=== PATIENT | female | born 1995 | race African-American/Black ===

== ENCOUNTER 2022-02-08 12:24 | Emergency (ER) | payer SELFPAY ==
[2022-02-09 17:15] LABS: Chlamydia by PCR Not Detected (NotDetected); GC by PCR Not Detected (NotDetected)
== END 2022-02-08 14:40 | disposition home or self-care (01) ==
LOC: CSHERS 12:24
DX: B02.9 Zoster without complications (principal)
CPT/HCPCS: 87480; 87491; 87510; 87591; 87660; 99283

== ENCOUNTER 2022-04-22 12:45 | Emergency (ER) | payer SELFPAY | END 2022-04-22 14:50 | disposition home or self-care (01) | LOC: CSHERS 12:45 | DX: I80.8 Phlebitis and thrombophlebitis of other sites (principal) | CPT/HCPCS: 99283 ==

== ENCOUNTER 2022-05-21 11:48 | Emergency (ER) | payer SELFPAY ==
[2022-05-21 12:49] LABS: #Eosinphils 0.1 10x3/uL (0.0-0.5); #Monocytes 0.8 10x3/uL (0.0-1.1); #Neutrophils 7.7 10x3/uL (1.5-8.4); %Basophils 0.4 % (0.0-2.0); %Lymphocytes 14.8 % (18.0-47.0); %Monocytes 8.3 % (0.0-10.0); %Neutrophils 75.2 % (40.0-75.0); Bilirubin Neg (Negative); Blood, Urine 10 (Negative); Clarity Slightly Cloudy (Clear); Glucose, Urine (Dipstick) Normal (Negative); Hemoglobin 12.9 g/dL (12.0-15.5); Ketone, Urine 15 mg/dL (Negative); Leukocyte 100 (Negative); Mean Corpuscular HGB CONC 33.3 g/dL (32.0-36.0); Mean Corpuscular Hemoglobin 28.4 pg (27.0-33.0); Mean Corpuscular Volume 85.1 fl (81.6-98.3); Mean Platelet Volume 9.6 fl (7.4-10.4); Nitrite Negative (Negative); Platelet Count 327 10x3/uL (150-450); Protein, Urine (Dipstick) 30 mg/dl (Neg-Trace); RBC Distribution Width 14.7 % (11.5-14.5); Red Blood Cell (RBC) Count 4.55 10x6/uL (3.90-5.03); Specific Gravity, Urine 1.025 (1.005-1.030); White Blood Cell (WBC) Count 10.2 10x3/uL (3.5-10.5)
[2022-05-21 12:57] LABS: BHCG - Serum Negative (NEGATIVE); Pregs Control Background? CLEAR/WHITE (CLR/WHITE); Pregs Control Bar Appear? YES (CONTROL BAR)
[2022-05-21 12:58] LABS: Bacteria/HPF Rare-Few HPF (None Seen); Squamous Epithelial 21-50 HPF (0-3)
[2022-05-21 12:59] LABS: Mucous/LPF 1+ LPF (<2+)
[2022-05-21 13:06] LABS: ALT (SGPT) 11 U/L (8-55); AST (SGOT) 9 U/L (5-34); Albumin 3.9 g/dL (3.5-5.0); Alkaline Phosphatase 76 U/L (40-110); Anion Gap 15 mmol/L (10-20); BUN (Urea Nitrogen) 10 mg/dL (7.0-18.7); Bilirubin, Total 0.4 mg/dL (0.2-1.2); Calc. Creatinine Clearance 0 mL/min (70-130); Calcium 8.9 mg/dL (7.8-10.44); Carbon Dioxide 23 mmol/L (22-29); Chloride 104 mmol/L (98-107); Estimated GFR 86; Globulin 2.8 g/dL (2.4-3.5); Glucose 183 mg/dL (70-105); Potassium 3.4 mmol/L (3.5-5.1); Protein, Total 6.7 g/dL (6.0-8.3); Sodium 139 mmol/L (136-145)
== END 2022-05-21 16:50 | disposition home or self-care (01) ==
LOC: CSHERS 11:48
DX: J11.1 Influenza due to unidentified influenza virus with other respiratory manifestations (principal); R07.9 Chest pain, unspecified
CPT/HCPCS: 71045; 80053; 81003; 81015; 84484; 84703; 85025; 87804; 93005; 96360; 96361

== ENCOUNTER 2022-09-02 12:11 | Emergency (ER) | payer OTHER, SELFPAY ==
[2022-09-02] MEDS ORDERED: Ketorolac Tromethamine 30 MG/ML VIAL ONE (12:44)
== END 2022-09-02 14:16 | disposition home or self-care (01) ==
LOC: CSHERS 12:11
DX: S30.0XXA Contusion of lower back and pelvis, initial encounter (principal); S20.20XA Contusion of thorax, unspecified, initial encounter; W01.0XXA Fall on same level from slipping, tripping and stumbling without subsequent striking against object, initial encounter
CPT/HCPCS: 72100; 96372; J1885